=== PATIENT | male | born 1990 ===

== ENCOUNTER 2018-03-10 16:05 | Emergency (ER) | payer SELFPAY ==
[2018-03-10 16:14] VITALS: RESP 18; TEMP 98.1; O2SAT 99
--- NOTE | 2018-03-10 16:24 | ED PDOC ---
Arrival/HPI - General Historian: Patient - History of Present Illness Narrative History of Present Illness (Text): 03/10/18 16:37 27 y/o male with no significant PMH who presents to the ED c/o back pain x 1 day. 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 Pain is worse with movement. He has not taken any medication for pain. Denies fevers, chills, neck pain, shoulder pain, lower back pain, numbness, paresthesias, chest pain, SOB, headache, weakness, urinary symptoms. <Priscilla Marx - Last Filed: 03/10/18 16:56> <Tony Jimenez - Last Filed: 03/11/18 15:50> - General Chief Complaint: Back Pain Time Seen by Provider: 03/10/18 16:07 Past Medical History - Provider Review Nursing Documentation Reviewed: Yes - Infectious Disease Hx of Infectious Diseases: None - Psychiatric Hx Substance Use: No <Priscilla Marx - Last Filed: 03/10/18 16:56> Family/Social History - Physician Review Nursing Documentation Reviewed: Yes Family/Social History: No Known Family HX Smoking Status: Never Smoked Hx Alcohol Use: No Hx Substance Use: No <Priscilla Marx - Last Filed: 03/10/18 16:56> Allergies/Home Meds <Priscilla Marx - Last Filed: 03/10/18 16:56> <Tony Jimenez - Last Filed: 03/11/18 15:50> Allergies/Adverse Reactions: Allergies No Known Allergies Allergy (Verified 03/10/18 16:14) Review of Systems - Physician Review All systems were reviewed & negative as marked: Yes - Review of Systems Constitutional: Normal. absent: Fevers Eyes: Normal ENT: Normal Respiratory: Normal. absent: SOB, Cough Cardiovascular: Normal. absent: Chest Pain, Palpitations Gastrointestinal: Normal. absent: Abdominal Pain, Stool Changes, Nausea, Vomiting Genitourinary Male: Normal Musculoskeletal: Back Pain, Myalgias (paraspinal thoracic, left sided) Skin: Normal. absent: Rash, Skin Lesions Neurological: Normal. absent: Headache, Dizziness, Focal Weakness, Gait Changes <Priscilla Marx - Last Filed: 03/10/18 16:56> Physical Exam Vital Signs Reviewed: Yes Vital Signs Temp Pulse Resp BP Pulse Ox 03/10/18 16:12 98.1 F 73 18 126/79 99 Temperature: Afebrile Blood Pressure: Normal Pulse: Regular Respiratory Rate: Normal Appearance: Positive for: Well-Appearing, Non-Toxic, Comfortable Pain Distress: None Mental Status: Positive for: Alert and Oriented X 3 - Systems Exam Head: Present: Atraumatic, Normocephalic Pupils: Present: PERRL Extroacular Muscles: Present: EOMI Mouth: Present: Moist Mucous Membranes Neck: Present: Normal Range of Motion. No: MIDLINE TENDERNESS, Paraspinal Tenderness Respiratory/Chest: Present: Clear to Auscultation, Good Air Exchange. No: Respiratory Distress, Accessory Muscle Use Cardiovascular: Present: Regular Rate and Rhythm, Normal S1, S2. No: Murmurs Back: Present: Normal Inspection, Paraspinal Tenderness (paraspinal thoracic, left sided). No: CVA Tenderness, Midline Tenderness Upper Extremity: Present: Normal Inspection, Normal ROM, NORMAL PULSES, Capillary Refill < 2s. No: Cyanosis, Edema, Tenderness, Swelling, Deformity Lower Extremity: Present: Normal Inspection, NORMAL PULSES, Capillary Refill < 2 s. No: Tenderness, Swelling Neurological: Present: GCS=15, CN II-XII Intact, Speech Normal, Motor Func Grossly Intact, Normal Sensory Function, Normal Cerebellar Funct, Gait Normal Skin: Present: Warm, Dry, Normal Color. No: Rashes Lymphatic: No: Cervical Adenopathy Psychiatric: Present: Alert, Oriented x 3, Normal Insight, Normal Concentration <Priscilla Marx - Last Filed: 03/10/18 16:56> Vital Signs Temp Pulse Resp BP Pulse Ox 03/10/18 16:55 80 18 119/72 99 03/10/18 16:12 98.1 F 73 18 126/79 99 <Tony Jimenez - Last Filed: 03/11/18 15:50> Medical Decision Making ED Course and Treatment: 03/10/18 16:21 27 y/o male with no significant PMH who presents to the ED c/o back pain x 1 day. 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 Pain is worse with movement. He has not taken any medication for pain. Denies fevers, chills, neck pain, shoulder pain, lower back pain, numbness, paresthesias, chest pain, SOB, headache, weakness, urinary symptoms. Physical Exam: Normal vitals. Normal cardiac and pulmonary exams. Normal back inspection. Mild left-sided thoracic paraspinal muscle tenderness and spasm. Full ROM of back, neck, and shoulders. No CVA tenderness. Full strength and sensation in arms and legs b/l. will give toradol 60mg IM will give flexeril 5mg PO will reevaluate in 30 minutes 03/10/18 16:56 medication given by nursing. will reevaluate in 30 min. 03/10/18 17:20 Pt reports decreased pain. Impression: Muscle strain Plan: Increase fluids Take 600mg Ibuprofen every 6 hours with food as needed for pain Take flexeril every 8 hours as needed for pain Followup with primary doctor within 2 days Return to ED if symptoms persist or worsen Plan discussed with pt, who agrees and understands. Pt comfortable with discharge home. <Priscilla Marx - Last Filed: 03/10/18 16:56> - Medication Orders Current Medication Orders: Discontinued Medications Cyclobenzaprine HCl (Flexeril) 5 mg PO STAT STA Stop: 03/10/18 16:24 Last Admin: 03/10/18 16:50 Dose: 5 mg Ketorolac Tromethamine (Toradol) 60 mg IM STAT STA Stop: 03/10/18 16:23 Last Admin: 03/10/18 16:51 Dose: 60 mg MAR Pain Assessment Document 03/10/18 16:51 LEANNE (Rec: 03/10/18 16:51 [id number] Pain Reassessment Is this a pain reassessment? No Sleep Is patient sleeping during reassessment? No Presence of Pain Presence of Pain Yes IM Administration Charges Document 03/10/18 16:51 LEANNE (Rec: 03/10/18 16:51 [id number]) Charges for Administration # of IM Administrations 1 <Tony Jimenez - Last Filed: 03/11/18 15:50> - PA / SPECIALTY DEVELOPMENT CONSULTANT / Resident Statement / has reviewed & agrees with the documentation as recorded. <Tony Jimenez - Last Filed: 03/11/18 15:50> Disposition/Present on Arrival - Present on Arrival Any Indicators Present on Arrival: No History of DVT/PE: No History of Uncontrolled Diabetes: No Urinary Catheter: No History of Decub. Ulcer: No History Surgical Site Infection Following: None - Disposition Have Diagnosis and Disposition been Completed?: Yes Disposition Time: 16:34 Patient Plan: Discharge <Priscilla Marx - Last Filed: 03/10/18 16:56> <Tony Jimenez - Last Filed: 03/11/18 15:50> - Disposition Diagnosis: Muscle strain Disposition: HOME/ ROUTINE Condition: IMPROVED Discharge Instructions (ExitCare): Muscle Strain Additional Instructions: Increase fluids Apply heat to the injured area Avoid heavy lifting and strenuous activity Take 600mg Ibuprofen every 6 hours with food as needed for pain Take flexeril every 8 hours as needed for pain Followup with primary doctor within 2 days Return to ED if symptoms persist or worsen Prescriptions: Cyclobenzaprine [Flexeril] 5 mg PO Q8H PRN #10 tab PRN Reason: spasm Ibuprofen [Motrin Tab] 600 mg PO Q6H PRN #20 tab PRN Reason: Pain, Moderate (4-7) Referrals: Mimi Juarez MD [Medical Doctor] - Follow up with primary [facility] [Outside] - Follow up with primary Forms: [email or web address] [facility] (Japanese), WORK NOTE
[2018-03-10 18:22] VITALS: BP 119/72; PULSE 80
== END 2018-03-10 17:15 | disposition home or self-care (01) ==
LOC: ED 16:05
DX: S29.012A Strain of muscle and tendon of back wall of thorax, initial encounter (principal); X50.0XXA Overexertion from strenuous movement or load, initial encounter; Y92.89 Other specified places as the place of occurrence of the external cause; Y99.0 Civilian activity done for income or pay
CPT/HCPCS: 96372; 99282; J1885

== ENCOUNTER 2018-03-15 16:47 | Emergency (ER) | payer SELFPAY ==
[2018-03-15 16:56] VITALS: BMI 25.8
[2018-03-15 17:00] VITALS: RESP 18; TEMP 98.5; O2SAT 100
--- NOTE | 2018-03-15 18:00 | ED PDOC ---
Arrival/HPI <Tony Jimenez - Last Filed: 03/15/18 19:18> - General Historian: Patient - History of Present Illness Narrative History of Present Illness (Text): 03/15/18 17:53 27 yo M with no significant PMHx presenting to the ED with L scapular pain for the past week. Of note, patient came to [facility] ED on 03/10 for similar symptoms. 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 Pain is worsened with movement, rated 10/10 when attempted to lift objects. He was given ibuprofen and flexeril to take for the pain, but it has not improved. No fevers, chills, neck pain, lower back pain, numbness, paresthesias, chest pain, SOB, headache, weakness, urinary symptoms. PMHx: denies PSHx: denies Allergies: NKDA Home Medications: none FHx: non-contributory Social Hx: denies alcohol,tobacco, illicit drug use. 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 Recently moved from [place], does not yet have insurance or a PMD Time/Duration: 1 week Symptom Onset: Sudden Symptom Course: Unchanged Severity Level: Severe <Newton Reddy - Last Filed: 03/15/18 19:23> - General Chief Complaint: Upper Extremity Problem/Injury Time Seen by Provider: 03/15/18 16:50 Past Medical History - Provider Review Nursing Documentation Reviewed: Yes - Infectious Disease Hx of Infectious Diseases: None - Psychiatric Hx Substance Use: No - Anesthesia Hx Anesthesia: No <Newton Reddy - Last Filed: 03/15/18 19:23> Family/Social History - Physician Review Nursing Documentation Reviewed: Yes Family/Social History: Unknown Family HX Smoking Status: Never Smoked Hx Alcohol Use: No Hx Substance Use: No <Newton Reddy - Last Filed: 03/15/18 19:23> Allergies/Home Meds <Tony Jimenez - Last Filed: 03/15/18 19:18> <Newton Reddy - Last Filed: 03/15/18 19:23> Allergies/Adverse Reactions: Allergies No Known Allergies Allergy (Verified 03/10/18 16:14) Review of Systems - Physician Review All systems were reviewed & negative as marked: Yes - Review of Systems Constitutional: Normal Eyes: Normal ENT: Normal Respiratory: Normal Cardiovascular: Normal Gastrointestinal: Normal Genitourinary Male: Normal Musculoskeletal: Back Pain, Myalgias (L scapular region, paraspinal thoracic). absent: Neck Pain, Joint Swelling Skin: Normal. absent: Rash, Skin Lesions, Laceration Neurological: Normal Endocrine: Normal Hemo/Lymphatic: Normal Psychiatric: Normal <Newton Reddy - Last Filed: 03/15/18 19:23> Physical Exam Vital Signs Temp Pulse Resp BP Pulse Ox 03/15/18 17:00 98.5 F 72 18 114/68 100 <Tony Jimenez - Last Filed: 03/15/18 19:18> Vital Signs Reviewed: Yes Vital Signs Temp Pulse Resp BP Pulse Ox 03/15/18 17:00 98.5 F 72 18 114/68 100 Temperature: Afebrile Blood Pressure: Normal Pulse: Regular Respiratory Rate: Normal Appearance: Positive for: Well-Appearing, Non-Toxic, Comfortable Pain Distress: Mild Mental Status: Positive for: Alert and Oriented X 3 - Systems Exam Head: Present: Atraumatic, Normocephalic Pupils: Present: PERRL Extroacular Muscles: Present: EOMI Conjunctiva: Present: Normal Ears: Present: Normal Mouth: Present: Moist Mucous Membranes Pharnyx: Present: Normal Neck: Present: Normal Range of Motion. No: MIDLINE TENDERNESS, Paraspinal Tenderness Respiratory/Chest: Present: Clear to Auscultation, Good Air Exchange. No: Respiratory Distress, Accessory Muscle Use, Wheezes, Rales, Rhonchi Cardiovascular: Present: Regular Rate and Rhythm, Normal S1, S2. No: Murmurs Abdomen: Present: Normal Bowel Sounds. No: Tenderness, Distention, Peritoneal Signs, Rebound, Guarding, Mass/Organomegaly Back: Present: Normal Inspection, Paraspinal Tenderness (L thoracic ). No: CVA Tenderness, Midline Tenderness Upper Extremity: Present: Normal Inspection, Normal ROM (pain with active and passive ROM LUE), NORMAL PULSES, Tenderness (TTP over L scapular region), Capillary Refill < 2s. No: Cyanosis, Edema, Swelling, Erythema Lower Extremity: Present: Normal Inspection, NORMAL PULSES, Normal ROM, Capillary Refill < 2 s. No: Edema, CALF TENDERNESS, Cyanosis, Tenderness, Swelling Neurological: Present: CN II-XII Intact, Speech Normal Skin: Present: Warm, Dry, Normal Color. No: Rashes Psychiatric: Present: Alert, Oriented x 3, Normal Insight, Normal Concentration <Newton Reddy - Last Filed: 03/15/18 19:23> Medical Decision Making ED Course and Treatment: 03/15/18 18:42 Patient Seen with Resident: In agreement with resident note which contains more details about the patient. Patient seen and evaluated with resident. Came up with plan and treatment together. Impression: 27 year old male who is complaining of left scapular pain for 1 week, which occurred while lifting at his occupation. - RAD Interpretation Radiology Orders: 03/15/18 17:46 SHOULDER LEFT [RAD] Stat - Medication Orders Current Medication Orders: Discontinued Medications Cyclobenzaprine HCl (Flexeril) 5 mg PO STAT STA Stop: 03/15/18 17:50 Last Admin: 03/15/18 18:13 Dose: 5 mg Ibuprofen (Motrin Tab) 400 mg PO STAT STA Stop: 03/15/18 18:08 Last Admin: 03/15/18 18:13 Dose: 400 mg MAR Pain/Vitals Document 03/15/18 18:13 EQ (Rec: 03/15/18 18:13 EQ [id number]) Pain Reassessment Is This A Pain ReAssessment? No Sleep Is patient sleeping during reassessment? No Presence of Pain Presence of Pain Yes <Tony Jimenez - Last Filed: 03/15/18 19:18> ED Course and Treatment: 03/15/18 18:04 Impression: 27 yo M presenting to ED for L scapular pain x 1 week Plan: --XR L shoulder --ibuprofen 400 mg PO x1 --flexeril 5 mg PO x1 --monitor and disposition - RAD Interpretation Radiology Orders: 03/15/18 17:46 SHOULDER LEFT [RAD] Stat - Medication Orders Current Medication Orders: Discontinued Medications Cyclobenzaprine HCl (Flexeril) 5 mg PO STAT STA Stop: 03/15/18 17:50 Ibuprofen (Motrin Oral Susp) 400 mg PO STAT STA Stop: 03/15/18 17:48 <Newton Reddy - Last Filed: 03/15/18 19:23> - Scribe Statement The provider has reviewed the documentation as recorded by the Scribe Ephraim Belen Provider Scribe Attestation: All medical record entries made by the Scribe were at my direction and personally dictated by me. I have reviewed the chart and agree that the record accurately reflects my personal performance of the history, physical exam, medical decision making, and the department course for this patient. I have also personally directed, reviewed, and agree with the discharge instructions and disposition. <Tony Jimenez - Last Filed: 03/15/18 19:18> Disposition/Present on Arrival - Disposition Patient Plan: Discharge, Transfer To <Tony Jimenez - Last Filed: 03/15/18 19:18> - Present on Arrival Any Indicators Present on Arrival: No History of DVT/PE: No History of Uncontrolled Diabetes: No Urinary Catheter: No History of Decub. Ulcer: No History Surgical Site Infection Following: None - Disposition Have Diagnosis and Disposition been Completed?: Yes Disposition Time: 19:07 <Newton Reddy - Last Filed: 03/15/18 19:23> - Disposition Diagnosis: Muscle strain Disposition: HOME/ ROUTINE Patient Problems: Current Active Problems Problem Status Onset Muscle strain Acute Condition: STABLE Discharge Instructions (ExitCare): Muscle Strain (DC) Referrals: Bahman Jha MD [Staff Provider] - Follow up with primary Yun Iraheta MD [Staff Provider] - Follow up with primary Forms: [facility] (Tajik), WORK NOTE
[2018-03-15 19:48] VITALS: BP 110/72; PULSE 76
--- NOTE | 2018-03-16 10:28 | RAD ---
Date of service: 03/15/2018 PROCEDURE: Radiographs of the Left Shoulder HISTORY: L shoulder pain COMPARISON: No prior. FINDINGS: BONES: Normal. No fracture. JOINTS: Normal. Glenohumeral and acromioclavicular joints preserved. No osteoarthritis. SOFT TISSUES: Normal. OTHER FINDINGS: None. IMPRESSION: No acute fracture or dislocation.
== END 2018-03-15 19:51 | disposition home or self-care (01) ==
LOC: ED 16:47
DX: S46.912D Strain of unspecified muscle, fascia and tendon at shoulder and upper arm level, left arm, subsequent encounter (principal); X50.0XXD Overexertion from strenuous movement or load, subsequent encounter